=== PATIENT | male | born 1950 | race Caucasian/White ===

== ENCOUNTER → 2016-07-24 | Outpatient (CLI) | payer MEDICARE ==
--- NOTE | 2016-07-24 13:22 | XR ---
EXAMINATION TYPE: XR chest 2V DATE OF EXAM: 07/24/2016 1:14 PM COMPARISON: NONE TECHNIQUE: PA and lateral views submitted. HISTORY: Hypertension FINDINGS: The lungs are clear and there is no pneumothorax, pleural effusion, or focal pneumonia. Hypertrophi c and degenerative change of the spine. No overt failure. IMPRESSION: 1. No acute process.
== END | disposition home or self-care (01) ==
LOC: RADXRMAIN 12:57
PROVIDERS: ATTEND Physician Assistant
DX: I10 Essential (primary) hypertension (principal)
CPT/HCPCS: 71020

== ENCOUNTER → 2021-08-28 | Outpatient (CLI) | payer MEDICARE ==
--- NOTE | 2021-08-29 08:38 | ECHOF ---
Referral Reason:I10 MEASUREMENTS -------- HEIGHT: 182.9 cm WEIGHT: 88.5 kg BP: RVIDd: 2.7 cm (< 3.3) IVSd: 1.3 cm (0.6 - 1.1) LVIDd: 4.4 cm (3.9 - 5.3) LVPWd: 1.5 cm (0.6 - 1.1) IVSs: 1.5 cm LVIDs: 4.2 cm LVPWs: 1.5 cm LA Diam: 3.8 cm (2.7 - 3.8) Ao Diam: 3.5 cm (2.0 - 3.7) AV Cusp: 2.1 cm (1.5 - 2.6) MV EXCURSION: 16.659 mm (> 18.000) MV EF SLOPE: 77 mm/s (70 - 150) EPSS: 0.2 cm MV E Paulie: 0.61 m/s MV DecT: 263 ms MV A Paulie: 0.93 m/s MV E/A Ratio: 0.65 RAP: 5.00 mmHg RVSP: 15.54 mmHg FINDINGS -------- Sinus rhythm. The left ventricle is mildly dilated. There is mild concentric left ventricular hypertrophy. Over all left ventricular systolic function is low-normal with, an EF between 50 - 55 %. The right ventricle is normal in size. The left atrium is mildly dilated. The right atrial size is normal. There is mild aortic valve sclerosis. There is no evidence of aortic regurgitation. Mild mitral annular calcification present. Mild mitral regurgitation is present. Mild tricuspid regurgitation present. Right ventricular systolic pressure is normal at < 35 mmHg. There is no pulmonic regurgitation present. There is no pericardial effusion. CONCLUSIONS -------- 1. The left ventricle is mildly dilated. 2. There is mild concentric left ventricular hypertrophy. 3. Overall left ventricular systolic function is low-normal with, an EF between 50 - 55 %. 4. The right ventricle is normal in size. 5. The left atrium is mildly dilated. 6. The right atrial size is normal. 7. There is mild aortic valve sclerosis. 8. Mild mitral annular calcification present. 9. Mild mitral regurgitation is present. 10. Mild tricuspid regurgitation present. 11. There is no pericardial effusion. ASSOCIATE PROFESSOR OF COUNSELING: Chantell Rincon RDCS
== END | disposition home or self-care (01) ==
LOC: RADECHMAIN 14:57
PROVIDERS: ATTEND Family Medicine
DX: I08.3 Combined rheumatic disorders of mitral, aortic and tricuspid valves (principal); I10 Essential (primary) hypertension
CPT/HCPCS: 93306

== ENCOUNTER → 2021-09-22 | Outpatient (CLI) | payer MEDICARE ==
[~2021-09-22] MED LIST: REGADENOSON 0.4 MG/5 ML SYRINGE IV PRN
--- NOTE | 2021-09-22 12:29 | P.STRESS ---
- Stress Test Note Stress Test Results/Findings: Exam Performed: NM stress lexiscan cardiolite Exam Date: 09/22/21 Reason for Exam: CP Height: 5 ft 11 in Weight: 88.451 kg Protocol: LEXISCAN CARDIOLITE Stage: NA Duration of Exercise: NA Resting Heart Rate: 75 Resting Blood Pressure: 150/94 Maximum Achieved Heart Rate: 87 Maximum Achieved Blood Pressure: 166/94 85% PMHR: 126 100% PMHR: 148 METS: NA Technologist Comment: Stress Test Results/Findings: At baseline EKG showed normal sinus rhythm, normal axis, incomplete left bundle branch block with nonspecific T-wave inversions in the inferior leads. Patient recieved IV infusion of Lexiscan 0.4mg and at peak infusion EKG showed no significant change from baseline. Conclusions: 1. Nondiagnostic EKG portion secondary to baseline EKG abnormalities. 2. Nuclear imaging to be reported separately.
--- NOTE | 2021-09-23 08:35 | NM ---
EXAMINATION TYPE: NM stress lexiscan cardiolite DATE OF EXAM: 09/22/2021 COMPARISON: NONE HISTORY: Chest pain TECHNIQUE: After the intravenous administration of 10.1 mCi Tc 99m Sestamibi - Cardiolite resting SP ECT images acquired 57 minutes post injection. The patient received 0.4mg Lexiscan, 25.6 mCi Tc 99m Sestamibi - Stress images obtained [address] injection FINDINGS: Review of stress and rest SPECT images demonstrates a area of stress-induced reversible ischemia invo lving the anterior and anteroapical myocardium. Gated analysis shows normal wall motion with the exc eption of the anterior apical myocardium hypokinesis. There is an estimated left ventricular ejection fraction of 43 %. Report called to referring clinician 8:30 AM 09/23/2021. IMPRESSION: 1. There is a area of stress-induced reversible ischemia involving the anterior and anterior apical m yocardium. 2. Ejection fraction of 43% correlate clinically.
--- NOTE | 2021-09-24 11:50 | ECHOS ---
Stress Test Results/Findings: Exam Performed: NM stress lexiscan cardiolite Exam Date: 09/22/21 Reason for Exam: CP Height: 5 ft 11 in Weight: 88.451 kg Protocol: LEXISCAN CARDIOLITE Stage: NA Duration of Exercise: NA Resting Heart Rate: 75 Resting Blood Pressure: 150/94 Maximum Achieved Heart Rate: 87 Maximum Achieved Blood Pressure: 166/94 85% PMHR: 126 100% PMHR: 148 METS: NA Technologist Comment: Stress Test Results/Findings: At baseline EKG showed normal sinus rhythm, normal axis, incomplete left bundle branch block with nonspecific T-wave inversions in the inferior leads. Patient received IV infusion of Lexiscan 0.4mg and at peak infusion EKG showed no significant change from baseline. Conclusions: 1. Nondiagnostic EKG portion secondary to baseline EKG abnormalities. 2. Nuclear imaging to be reported separately. MTDD
== END | disposition home or self-care (01) ==
LOC: RADNMMAIN 08:50
PROVIDERS: ATTEND Family Medicine
DX: I25.9 Chronic ischemic heart disease, unspecified (principal)
CPT/HCPCS: 93017; 78452; A9500; J2785

== ENCOUNTER → 2021-09-30 | Outpatient (CLI) | payer MEDICARE ==
[2021-09-30 19:18] LABS: HCT 41.8 % (39.6-50.0); MCH 31.3 pg (27.0-32.0); MCHC 33.5 g/dL (32.0-37.0); MCV 93.5 fL (80.0-97.0); Mean Platelet Volume 9.7 fL (9.5-12.2); NRBC Per 100 WBC 0 /100 WBCS (0.0-0.0); Platelet Count 218 X 10*3/uL (140-440); RBC 4.47 X 10*6/uL (4.40-5.60); RDW 12.8 % (11.5-14.5)
[2021-09-30 19:26] LABS: African American GFR (CKD) 98.5 (60.0-200.0); Anion Gap 12.4 mmol/L (10.00-18.00); Blood Urea Nitrogen 13.7 mg/dL (9.0-27.0); Carbon Dioxide 26.6 mmol/L (20.0-27.5); Potassium 4.1 mmol/L (3.5-5.5)
== END | disposition home or self-care (01) ==
LOC: LABPAT 10:32
PROVIDERS: ATTEND Internal Medicine Cardiovascular Disease
DX: Z01.812 Encounter for preprocedural laboratory examination (principal); R07.2 Precordial pain
CPT/HCPCS: 80051; 82565; 84520; 85027

== ENCOUNTER 2021-10-07 09:02 | Day surgery (SDC) | payer MEDICARE ==
[~2021-10-07 09:02] MED LIST changes: +ALPRAZolam 0.25 MG TAB PO PRN; +ALPRAZolam 0.5 MG TAB PO PRN; +ASPIRIN 325 MG TAB PO ONE; +HEPARIN SODIUM,PORCINE 10,000 UNIT in SODIUM CHLORIDE 0.9% 1,000 ML IRRIGATION PRN; +HEPARIN SODIUM,PORCINE 2,500 UNIT in SODIUM CHLORIDE 0.9% 250 ML IRRIGATION PRN; +NITROGLYCERIN SL TABS 0.4 MG TAB SUBLINGUAL PRN; -REGADENOSON 0.4 MG/5 ML SYRINGE IV PRN
[2021-10-07] MEDS ORDERED: SODIUM CHLORIDE 0.9% 1,000 ML IV ONE (09:11)
[2021-10-07 09:21] LABS: Glucose,Whole Blood 148 mg/dL (75-99)
[2021-10-07] MEDS ORDERED: VERAPAMIL 2.5 MG/ML 2 ML AMP ONE ×2 (10:09→13:15)
[2021-10-07] MEDS ORDERED: fentaNYL (PF) 50 MCG/ML 2 ML AMP ONE (10:09)
[2021-10-07] MEDS ORDERED: HEPARIN SODIUM 1,000 UN/ML (10ML VL) ONE (10:09)
[2021-10-07] MEDS: MIDAZOLAM 2 MG/2 ML VIAL IV ONE ×2 (10:15→11:45)
[2021-10-07] MEDS: fentaNYL (PF) 50 MCG/ML 2 ML AMP IV ONE ×2 (10:15→11:34)
[2021-10-07] MEDS ORDERED: LIDOCAINE 2% INJ 20 MG/ML SQ ONE (10:30)
[2021-10-07] MEDS ORDERED: VERAPAMIL SYRINGE (5 MG/10 ML) INTRAARTER ONE (10:37)
--- NOTE | 2021-10-07 11:54 | CC ---
CARDIAC CATHETERIZATION REPORT INDICATION: This is a 71-year-old gentleman with multiple coronary risk factors, including hypertension, diabetes, dyslipidemia and strong family history of coronary artery disease, who was referred to us for evaluation of exertional dyspnea and episodes of chest tightness. Patient underwent a stress test that showed moderate to large area of stress-induced reversible perfusion defect involving the anterior and anteroapical wall with LV systolic dysfunction with an ejection fraction of 45%. Because of his symptoms and the abnormal stress test, I advised the patient to undergo cardiac catheterization for further evaluation. Patient had been explained risks, benefits and alternatives, understood and accepted. PROCEDURE NOTE: After obtaining informed consent, left heart catheterization and coronary angiogram were performed via the right radial artery using size 3.5 right and left Gabbi catheters. Patient tolerated the procedure well without any obvious immediate complications. Patient received moderate conscious sedation. Total sedation time was 27 minutes. After using a micropuncture needle, right radial artery access was obtained by Seldinger technique, and under fluoroscopic guidance catheters and wires were manipulated into the ascending aorta. Right and left coronary angiogram was obtained. I could not obtain hemodynamics. Patient received 5 mg of verapamil and 5000 units of intravenous heparin as per protocol. FINDINGS: HEMODYNAMICS: Central aortic pressure is 130/70 mm. LEFT VENTRICULOGRAM: Left ventriculogram was not performed. ANGIOGRAPHIC DATA: Left main coronary artery. Left main coronary artery appears calcified but is free of significant stenosis. It divides into left anterior descending coronary artery and circumflex coronary artery. Both the LAD and circumflex are calcified. Circumflex is a codominant system, and the AV groove circumflex has a 70% stenosis. LAD appears diffusely diseased with multiple focal areas of stenosis. In its mid portion there is a long segment of 90% stenosis noted. Right coronary artery is a tortuous vessel and appears calcified. There is a focal 60% to 70% stenosis in the mid RCA. CONCLUSIONS: Three-vessel coronary artery disease as described above with a focal significant lesion involving LAD, which explains patient's symptomatology and abnormal stress test. Angiographic data was reviewed by Dr. Tiffany May, the on-call hire car driver, who will proceed with angioplasty with stent placement of the same. I am hoping that we can manage the circumflex and the right coronary artery lesions with medication, but if he still has symptoms, we might consider RCA intervention at a later date. MMODL / IJN: [id number] /
[2021-10-07] MEDS ORDERED: IOPAMIDOL-370 125ML BTL INJ ONE (12:25)
[2021-10-07] MEDS ORDERED: HYDROmorphone 0.5 MG/0.5 ML SYRINGE IVP ONE (13:12)
[2021-10-07] MEDS ORDERED: CLOPIDOGREL 75 MG TAB ONE (13:15)
[2021-10-07] MEDS ORDERED: IOPAMIDOL-370 100ML BTL INJ ONE ×2 (13:19→13:25)
[2021-10-07] MEDS ORDERED: CLOPIDOGREL 75 MG TAB PO ONE (13:19)
[2021-10-07] MEDS ORDERED: RX INFO: IV CONTRAST WAS GIVEN 1 EACH MISC MISCELLANE PRN (14:23)
[2021-10-07] MEDS: SODIUM CHLORIDE 0.9% 1,000 ML in EMPTY BAG 1 BAG IV SCH ×2 (14:57→14:58)
[2021-10-07] MEDS: SODIUM CHLORIDE 0.9% 1,000 ML IV SCH (16:32)
--- NOTE | 2021-10-07 19:57 | PTCA ---
PERCUTANEOUSTRANS CORORONARY ANGIOGRAPHY DATE OF SERVICE: 10/07/2021. PROCEDURE: Percutaneous transluminal coronary angioplasty of a chronic total occlusion of mid LAD. PERFORMED BY: Dr. Asha May. Moderate conscious sedation time was 76 minutes. Patient was administered Versed. Oxygen saturation, hemodynamics and EKG were monitored closely. CLINICAL INFORMATION: Mr. Pham Velasquez is a 71-year-old gentleman with a history of hypertension, hyperlipidemia, type 2 diabetes, who also had an abnormal stress test with anterior wall reversible defect. He was advised cardiac catheterization after evaluation by Dr. Montano, and cardiac catheterization revealed moderate disease in the distal RCA and also circumflex. RCA was dominant. Mid LAD had a subtotal occlusion after a major septal branch. The flow in the LAD was somewhat sluggish and the entire LAD was diffusely diseased. He was advised intervention in the same setting. I discussed with the patient, explained to him the high-risk nature of the procedure and also that the success rate was lower than usual. He understood all details and wished to proceed with the procedure. PROCEDURE NOTE: The existing 6-[place] introducer in the right radial artery was used to perform the procedure. I wanted to check LV end-diastolic pressure, but I had difficulty because of extreme tortuosity in the brachiocephalic area. Aortic valve was not crossed and pressures were not checked. I used an XB LAD 3.5 guide catheter to cannulate the left coronary artery. Using a combination of a Super Cross 45-degree and a Whisper J- tipped wire, I was able to cross the chronic total occlusion after some attempts, and the wire was kept distally. A 1.5 mm mini Trek balloon was used to pre-dilate the lesion. I then used a 2.0 caliber [place] Trek balloon. After this I was able to use a 2.25 caliber NC Trek balloon throughout the area. I then tried to advance a 2.5 caliber stent. I was quite unsuccessful because of extreme tortuosity in the LAD before the origin of the septal branch. The same difficulty was encountered with a 2.0 caliber [place] stent. After some attempts, I abandoned the procedure and the final images showed remarkable improvement in angiographic appearance and flow, but the entire LAD has multiple areas of narrowing. The flow improvement was noted. The lesion which was about 99% stenosed was now about 40% stenosed, with improvement in flow. I could not advance the stent and therefore only PTCA was performed. Details were discussed with the patient as well as family member, specifically his . Patient received intravenous heparin. ACT was about 240 and an additional 1500 units of heparin was given. Details were discussed with the patient and family. The sheath was taken out and TR band applied as per protocol, and he was sent to the room in stable condition. We will continue medical therapy. It appears that this was a chronic total occlusion. The result was not very optimal, but there was significant improvement in flow noted. This was explained to the patient and family. MMODL / IJN: [id number] /
[2021-10-07 20:17] LABS: Glucose,Whole Blood 231 mg/dL (75-99)
[2021-10-07] MEDS: INSULIN ASPART (NovoLOG) 100 UNIT/ML VIAL SQ SCH (21:50)
[2021-10-08] MEDS: SODIUM CHLORIDE 0.9% 1,000 ML IV SCH (04:13)
[2021-10-08] MEDS: SODIUM CHLORIDE 0.9% 1,000 ML in EMPTY BAG 1 BAG IV SCH (04:13)
[2021-10-08 07:20] VITALS: BP 166/92; PULSE 74; RESP 15; TEMP 98.3
[2021-10-08 07:22] LABS: Glucose,Whole Blood 146 mg/dL (75-99)
[2021-10-08 07:31] LABS: African American GFR (CKD) >90 (>60 ml/min/1.73 sqM); Anion Gap 9 mmol/L; Blood Urea Nitrogen 12 mg/dL (9-20); Calcium 8.2 mg/dL (8.4-10.2); Carbon Dioxide 24 mmol/L (22-30); Chloride 104 mmol/L (98-107); Glucose 139 mg/dL (74-99); Non-African American GFR(CKD) >90 (>60 ml/min/1.73 sqM); Potassium 3.8 mmol/L (3.5-5.1); Sodium 137 mmol/L (137-145)
[2021-10-08] MEDS ORDERED: LOSARTAN 50 MG TAB PO STA (08:25)
[2021-10-08] MEDS: INSULIN ASPART (NovoLOG) 100 UNIT/ML VIAL SQ SCH (08:59)
[2021-10-08] MEDS ORDERED: LOSARTAN 50 MG TAB PO SCH (09:00)
[2021-10-08] MEDS ORDERED: ATORVASTATIN 20 MG TAB PO SCH (09:00)
[2021-10-08] MEDS ORDERED: ASPIRIN 81 MG PO SCH (09:00)
[2021-10-08] MEDS ORDERED: ISOSORBIDE MONONITRATE ER 30 MG TAB.ER.24H PO SCH (09:00)
[2021-10-08] MEDS ORDERED: CLOPIDOGREL 75 MG TAB PO SCH (09:00)
[2021-10-08] MEDS ORDERED: METOPROLOL SUCCINATE (ER) 25 MG TAB.ER.24H PO SCH (09:00)
[2021-10-08] MEDS ORDERED: amLODIPine 5 MG TAB PO SCH (09:00)
--- NOTE | 2021-10-08 14:55 | DS ---
DISCHARGE SUMMARY DATE OF ADMISSION: 10/07/2021 DATE OF DISCHARGE: 10/08/2021 DIAGNOSES: 1. Unstable angina. 2. Hypertension. 3. Diabetes. 4. Hyperlipidemia. This gentleman was brought in electively by Dr. Montano, underwent a cardiac catheterization, and then I performed PTCA of his chronically occluded mid LAD. This was somewhat of a difficult procedure. I could not advance the stent because of tortuosity, but significant improvement in flow was noted. Right radial site is clean and dry. Patient is asymptomatic. EKG and laboratory data have been reviewed and are good. Vitals are stable. No JVD. S1-S2 heard normally. Short systolic murmur noted. Lungs reveal decent air entry. Abdomen and lower extremity exam unchanged. Patient is ambulating without symptoms. I am recommending that he can be discharged today and see Dr. Montano in one week. He will be on dual antiplatelet therapy and I have reviewed this with patient in detail. He will be discharged today, see Dr. Montano in one week, and he will have a stress test in about 4 to 5 weeks. If there is still persistent ischemia in the LAD distribution, I will consider repeating the procedure from the right femoral approach. Discussed my thoughts in detail with the patient and also spoke to Dr. Montano. MMODL / IJN: [id number] /
[2021-10-09] MEDS ORDERED: LOSARTAN 50 MG TAB PO SCH (09:00)
[2021-10-09] MEDS ORDERED: ATORVASTATIN 80 MG TAB PO SCH (09:00)
== END 2021-10-08 11:49 | disposition home or self-care (01) ==
LOC: CATHCVL 09:02 → 6NMEDSUR 13:19 → CATHCVL 10-08 11:49
PROVIDERS: ATTEND Internal Medicine Cardiovascular Disease
DX: I25.110 Atherosclerotic heart disease of native coronary artery with unstable angina pectoris (principal); I25.82 Chronic total occlusion of coronary artery; I10 Essential (primary) hypertension; E11.9 Type 2 diabetes mellitus without complications; E78.2 Mixed hyperlipidemia; E07.9 Disorder of thyroid, unspecified; N40.0 Benign prostatic hyperplasia without lower urinary tract symptoms; N52.9 Male erectile dysfunction, unspecified; Z79.899 Other long term (current) drug therapy; Z79.890 Hormone replacement therapy; Z79.84 Long term (current) use of oral hypoglycemic drugs; Z82.49 Family history of ischemic heart disease and other diseases of the circulatory system
CPT/HCPCS: 93454; 92943; 80048; C1769 ×2; C1887 ×3; C1894; C1725 ×3; C1874 ×2; J2001; J2250; J3010; J1644; J1170; Q9967 ×2; 92920

== ENCOUNTER → 2024-09-28 | Outpatient (CLI) | payer MEDICARE ==
[2024-09-28 15:32] LABS: ALT 51 U/L (10-49); AST 33 U/L (14-35); Chol/HDL Ratio 3.46 Ratio
== END | disposition home or self-care (01) ==
LOC: LABWHC1 10:21
PROVIDERS: ATTEND Internal Medicine Cardiovascular Disease
DX: E78.2 Mixed hyperlipidemia (principal)
CPT/HCPCS: 36415; 80061; 84450; 84460